=== PATIENT | male | born 1990 | race Asian ===

== ENCOUNTER 2020-04-04 10:45 | Emergency (ER) | payer OTHER ==
[~2020-04-04] VITALS: Ht 165.1 cm; Wt 56.7 kg
[2020-04-04 11:19] VITALS: Ht 165.1 cm; Wt 56.7 kg
[2020-04-04 14:02] VITALS: BP 133/84
== END 2020-04-04 13:41 | disposition home or self-care (01) ==
LOC: ED 10:45
DX: U07.1 COVID-19 (principal)

== ENCOUNTER 2020-05-03 17:20 | Emergency (ER) | payer OTHER ==
[~2020-05-03] VITALS: Ht 172.7 cm; Wt 48.1 kg
[2020-05-03 17:32] VITALS: BP 127/76; Ht 172.7 cm; Wt 48.1 kg
[2020-05-03 19:38] LABS: BASOPHIL % 1.2 % (0.2-1.5); PLATELET COUNT 230 x10^3mcL (152-348); RED CELL DISTRIBUTION WIDTH 13.8 % (12.1-16.2)
[2020-05-03 19:51] LABS: CALCIUM 8.8 mg/dL (8.5-10.1); CHLORIDE SERUM 99 mmol/L (98-107); CREATININE SERUM 0.7 mg/dL (0.7-1.3); GFR1 > 60 mL/min; GLUCOSE SERUM 84 mg/dL (74-106); POTASSIUM SERUM 3.3 mmol/L (3.5-5.1); SODIUM SERUM 137 mmol/L (136-145)
[2020-05-03 19:55] LABS: ALBUMIN 4.1 g/dL (3.4-5.0); ALKALINE PHOSPHATASE 129 U/L (46-116); ALT/SGPT 672 U/L (16-63); AST/SGOT 289 U/L (15-37); BILIRUBIN TOTAL 1.43 mg/dL (0.20-1.00); TOTAL PROTEIN, SERUM 7.8 g/dL (6.4-8.2)
== END 2020-05-03 20:47 | disposition home or self-care (01) ==
LOC: ED 17:20
PROVIDERS: Student in an Organized Health Care Education/Training Program
DX: H53.8 Other visual disturbances (principal); H54.7 Unspecified visual loss